=== PATIENT | male | born 1985 | race Caucasian/White ===

== ENCOUNTER → 2018-02-18 | Emergency (ER) | payer BC ==
[~2018-02-18] VITALS: Ht 185.4 cm; Wt 83.9 kg
[~2018-02-18] MED LIST: PREDNISONE 20 M20 MG PO
[2018-02-18 14:42] VITALS: BP 125/79
== END ==
LOC: ER 14:40
DX: T78.01XA Anaphylactic reaction due to peanuts, initial encounter (principal); J98.01 Acute bronchospasm

== ENCOUNTER → 2020-06-11 | Outpatient (CLI) | payer BC | LOC: MRI 09:22 | PROVIDERS: ATTEND Physical Medicine & Rehabilitation Sports Medicine | DX: M51.17 Intervertebral disc disorders with radiculopathy, lumbosacral region (principal); M47.26 Other spondylosis with radiculopathy, lumbar region; M48.07 Spinal stenosis, lumbosacral region ==